=== PATIENT | male | born 1965 | race African-American/Black ===

== ENCOUNTER 2020-10-30 13:02 | Inpatient (IN) ==
[2020-10-30] MEDS ORDERED: DECADRON INJ PRESERVATIVE-FREE IVP ONE (14:40)
[2020-10-30] MEDS ORDERED: PROVENTIL NEB TX 0.083% 2.5MG/ 3ML NEB ONE (14:42)
--- NOTE | 2020-10-30 14:48 | DR.EXTPAIN ---
HPI Time seen Time Seen by Provider: 10/30/20 14:12 PCP Primary Care Physician: HENRIQUE HPI Comment HPI Comment: Patient presents with 4-5 days of flu-like illness. Notes that he has not had any known sick contacts. Complaint/Symptoms Chief Complaint:: ACHING ALL OVER,FEEL LIKE MUSCLE SPAMS,WEAKNESS,NO APPETTIE Self Treatment fo Chief Complaint: COLD MEDICINE COVID-19 Coronavirus risk:travel/contact w/high risk person: Yes Has patient experienced Coronavirus symptoms: Yes Coronavirus symptoms experienced: Fever and Coughing Source History Provided: Patient Mode of arrival Mode of Arrival: Ambulatory Timing Onset of Chief Complaint: 10/23/20 PMH PMH Past Medical History: Yes Past Medical History: Diabetes, GERD and Hypertension Past Surgical History: No Surgical History: Other Family History History of Family Medical Conditions: Yes Family Medical History: Coronary Artery Disease and Hypertension Social History Does any household member use tobacco: Yes Alcohol Use: None Do you use any recreational Drugs:: No Lives With: Significant Other Lives Where: Home Travel Risk Coronavirus risk:travel/contact w/high risk person: Yes Has patient experienced Coronavirus symptoms: Yes Coronavirus symptoms experienced: Fever and Coughing Infectious screening In the last 2 months have you had wt loss of >10#?: NO Have you had fever, night sweats or hemotysis?: No Have you traveled outside the country in the last 6 months?: No Isolation: Droplet ROS Review of Systems Constitutional: See HPI, Chills, Fever, Malaise, Weakness and Fatigue Respiratoy: Dry Cough All Other Systems: Reviewed and Negative PE Vital Signs Vitals: Temperature 99.7 F Pulse Rate [Left] 90 Pulse Rate 102 Respiratory Rate 20 Blood Pressure [Left Arm] 130/73 Blood Pressure 126/62 O2 Sat by Pulse Oximetry 95 General Limitations: No Limitations Head Head Exam: Normal Inspection, Atraumatic and Normocephalic Eyes Eye exam: Normal Appearance and EOMI ENT ENT Exam: Normal Exam Neck Neck Exam: Normal Inspection and Trachea Midline Chest Chest Inspection: Normal Inspection and Symmetric Chest Wall Rise Respiratory Respiratory Exam: Bilateral: Rhonchi Cardiovascular Cardiovascular Exam: Regular Rate, Normal Rhythm and Normal Heart Sounds Abdominal Exam Abdominal Exam: Normal Inspection, Normal Bowel Sounds and Soft Extremities Extremities Exam: Normal Inspection COURSE Reevaluation 1st: Unchanged ROR Labs Reviewed Laboratory Results Reviewed?: Yes Result Diagrams: 10/30/20 15:05 10/30/20 15:05 Laboratory: WBC 5.7 X10^3/uL (3.6-10.0) 10/30/20 15:05 RBC 4.90 X10^6/uL (4.7-6.0) 10/30/20 15:05 Hgb 14.0 g/dL (13.5-18.0) 10/30/20 15:05 Hct 41.2 % (42.0-54.0) L 10/30/20 15:05 MCV 84.1 fL (80.0-100.0) 10/30/20 15:05 MCH 28.5 pg (27.0-34.0) 10/30/20 15:05 MCHC 33.9 g/dL (33.0-35.0) 10/30/20 15:05 RDW 13.0 % (11.6-16.5) 10/30/20 15:05 Plt Count 201 X10^3/uL (150.0-450.0) 10/30/20 15:05 MPV 7.7 fL (7.4-11.0) 10/30/20 15:05 Neut % (Auto) 67.4 % (42.0-75.0) 10/30/20 15:05 Lymph % (Auto) 21.2 % (21.0-51.0) 10/30/20 15:05 [place] % (Auto) 11.0 % (0.0-13.0) 10/30/20 15:05 Eos % (Auto) 0.0 % (0.9-2.9) L 10/30/20 15:05 Baso % (Auto) 0.4 % (0.2-1.0) 10/30/20 15:05 Neut # (Auto) 3.9 x10^3/uL (2.2-4.8) 10/30/20 15:05 Lymph # (Auto) 1.2 X10^3/uL (1.3-2.9) L 10/30/20 15:05 [place] # (Auto) 0.6 x10^3/uL (0.3-0.8) 10/30/20 15:05 Eos # (Auto) 0.0 x10^3/uL (0.0-0.2) 10/30/20 15:05 Baso # (Auto) 0.0 X10^3/uL (0.0-0.1) 10/30/20 15:05 Absolute Nucleated RBC 0.1 /100WBC 10/30/20 15:05 Sodium 132 mmol/L (136-145) L 10/30/20 15:05 Corrected Sodium 133 mmol/L (136-145) L 10/30/20 15:05 Potassium 4.1 mmol/L (3.5-5.1) 10/30/20 15:05 Chloride 97 mmol/L (98-107) L 10/30/20 15:05 Carbon Dioxide 20.5 mmol/L (21-32) L 10/30/20 15:05 BUN 65 mg/dL (7-18) H 10/30/20 15:05 Creatinine 2.37 mg/dL (0.70-1.30) H 10/30/20 15:05 Est GFR (MDRD) Af Amer 37 (>60) L 10/30/20 15:05 Est GFR (MDRD) Non-Af 30 (>60) L 10/30/20 15:05 Glucose 160 mg/dL (65-99) H 10/30/20 15:05 Calcium 9.2 mg/dL (8.5-10.1) 10/30/20 15:05 Corrected Calcium TNP 10/30/20 15:05 Total Bilirubin 0.60 mg/dL (0.2-1.0) 10/30/20 15:05 AST 128 Units/L (15-37) H 10/30/20 15:05 ALT 70 Units/L (12-78) 10/30/20 15:05 Alkaline Phosphatase 63 Units/L (46-116) 10/30/20 15:05 Total Protein 7.9 g/dL (6.4-8.2) 10/30/20 15:05 Albumin 3.5 g/dL (3.4-5.0) 10/30/20 15:05 Globulin 4.4 g/dL (2.5-4.5) 10/30/20 15:05 Albumin/Globulin Ratio 0.8 Ratio (1.1-2.1) L 10/30/20 15:05 Influenza Type A (PCR) Negative (NEGATIVE) 10/30/20 15:13 Influenza Type B (PCR) Negative (NEGATIVE) 10/30/20 15:13 SARS CoV-2 RNA Rapid MERYL Positive (NEGATIVE) A 10/30/20 15:13 XRAY X-ray Results: bilateral infiltrates on CXR Opioid Opioid Risk Tool Age (Maxi box if 16-45): No History of Preadolescent Sexual Abuse: No Total: 0 Total Score Risk Category: Low Risk Copyright: Hesham LEIVA predicting aberrant behaviors Diagnosis Discharge Problem: Pneumonia due to 2019 novel coronavirus Acute renal failure Qualifiers: Acute renal failure type: unspecified Qualified Code(s): N17.9 - Acute kidney failure, unspecified
--- NOTE | 2020-10-30 15:21 | RAD ---
HISTORYCOUGH, FLU LIKE SXSTUDYCHEST, 1 VIEWCOMPARISONNoneFINDINGSThe trachea is midline. The cardiac silhouette is unremarkable. Patchy bibasilar airspace opacities. The bony thorax is unremarkable.IMPRESSIONPatchy bibasilar airspace opacities concerning for pneumonia.Electronically signed by: JESS CRUZ (Oct 30, 2020 15:20:00)
[2020-10-30 15:25] LABS: BASOPHILS % (AUTO) 0.4 % (0.2-1.0); HEMATOCRIT 41.2 % (42.0-54.0); LYMPHOCYTES # (AUTO) 1.2 X10^3/uL (1.3-2.9); LYMPHOCYTES % (AUTO) 21.2 % (21.0-51.0); MEAN CORPUSCULAR HEMOGLOBIN 28.5 pg (27.0-34.0); MEAN CORPUSCULAR HGB CONC 33.9 g/dL (33.0-35.0); MEAN CORPUSCULAR VOLUME 84.1 fL (80.0-100.0); MEAN PLATELET VOLUME 7.7 fL (7.4-11.0); MONOCYTES # (AUTO) 0.6 x10^3/uL (0.3-0.8); NEUTROPHILS # (AUTO) 3.9 x10^3/uL (2.2-4.8); NEUTROPHILS % (AUTO) 67.4 % (42.0-75.0); PLATELET COUNT 201 X10^3/uL (150.0-450.0); WHITE BLOOD COUNT 5.7 X10^3/uL (3.6-10.0)
[2020-10-30] MEDS ORDERED: DECADRON INJ ONE (15:34)
[2020-10-30] MEDS ORDERED: PROVENTIL NEB TX 0.083% 2.5MG/ 3ML ONE (16:13)
[2020-10-30 16:24] LABS: ALANINE AMINOTRANSFERASE 70 Units/L (12-78); ALBUMIN 3.5 g/dL (3.4-5.0); ALKALINE PHOSPHATASE 63 Units/L (46-116); ASPARTATE AMINO TRANSFERASE 128 Units/L (15-37); BLOOD UREA NITROGEN 65 mg/dL (7-18); CALCIUM 9.2 mg/dL (8.5-10.1); CARBON DIOXIDE 20.5 mmol/L (21-32); CHLORIDE 97 mmol/L (98-107); COR NA(FOR HYPERGLY) 133 mmol/L (136-145); CREATININE 2.37 mg/dL (0.70-1.30); SODIUM 132 mmol/L (136-145); TOTAL PROTEIN 7.9 g/dL (6.4-8.2); eGFR NON BLACK RACES 30 (>60)
[2020-10-30] MEDS ORDERED: NS 1000 ML 1,000 ML IV ONE (16:44)
[2020-10-30] MEDS ORDERED: NS 1000 ML 1,000 ML ONE (16:59)
[2020-10-30] MEDS ORDERED: VITAMIN A PO SCH (17:30)
[2020-10-30] MEDS ORDERED: NS 1000 ML 1,000 ML IV SCH (18:00)
[2020-10-30] MEDS: PROVENTIL NEB TX 0.083% 2.5MG/ 3ML NEB SCH (18:11)
[2020-10-30] MEDS: DECADRON TAB PO SCH (18:18)
[2020-10-30] MEDS: ZITHROMAX INJ 500 MG VIAL 500 MG in D5W 250 ML IV 250 ML IV SCH (18:47)
[2020-10-30] MEDS: ZINC SULFATE PO SCH ×2 (18:47→20:22)
[2020-10-30] MEDS: VITAMIN D (1.25MG) PO SCH (18:47)
[2020-10-30] MEDS: NS 1000 ML 1,000 ML IV SCH (19:07)
[2020-10-30] MEDS: LOVENOX INJ 30 MG SYR SC SCH (20:21)
[2020-10-30] MEDS: ASCORBIC ACID INJ MULTI-DOSE VIAL 1,500 MG in NS 100 ML IV 100 ML IV SCH (20:21)
[2020-10-31] MEDS: PROVENTIL NEB TX 0.083% 2.5MG/ 3ML NEB SCH ×4 (01:11→17:30)
[2020-10-31] MEDS: ASCORBIC ACID INJ MULTI-DOSE VIAL 1,500 MG in NS 100 ML IV 100 ML IV SCH ×4 (02:04→21:00)
[2020-10-31] MEDS: NS 1000 ML 1,000 ML IV SCH ×4 (02:04→21:00)
[2020-10-31] MEDS: HumuLIN R SC PRN ×3 (05:42→21:05)
[2020-10-31 05:45] LABS: ALBUMIN 2.9 g/dL (3.4-5.0); CALCIUM 8.5 mg/dL (8.5-10.1); CARBON DIOXIDE 20.9 mmol/L (21-32); COR CA(FOR HYPOALB) 9.4 mg/dL (8.5-10.1); CREATININE 1.84 mg/dL (0.70-1.30)
[2020-10-31 05:59] LABS: BASOPHILS % (AUTO) 0.2 % (0.2-1.0); HEMATOCRIT 36.7 % (42.0-54.0); HEMOGLOBIN 12.4 g/dL (13.5-18.0); LYMPHOCYTES # (AUTO) 0.7 X10^3/uL (1.3-2.9); LYMPHOCYTES % (AUTO) 14.9 % (21.0-51.0); MEAN CORPUSCULAR HEMOGLOBIN 28.3 pg (27.0-34.0); MEAN CORPUSCULAR HGB CONC 33.7 g/dL (33.0-35.0); MEAN CORPUSCULAR VOLUME 84.1 fL (80.0-100.0); MEAN PLATELET VOLUME 7.7 fL (7.4-11.0); MONOCYTES # (AUTO) 0.4 x10^3/uL (0.3-0.8); MONOCYTES % (AUTO) 7.9 % (0.0-13.0); NEUTROPHILS # (AUTO) 3.6 x10^3/uL (2.2-4.8); PLATELET COUNT 235 X10^3/uL (150.0-450.0); RED BLOOD COUNT 4.37 X10^6/uL (4.7-6.0); WHITE BLOOD COUNT 4.7 X10^3/uL (3.6-10.0)
[2020-10-31] MEDS: LOVENOX INJ 30 MG SYR SC SCH ×2 (09:53→21:00)
[2020-10-31] MEDS: TRICOR TAB 160 MG PO SCH (09:54)
[2020-10-31] MEDS: ZITHROMAX INJ 500 MG VIAL 500 MG in D5W 250 ML IV 250 ML IV SCH (09:55)
[2020-10-31] MEDS: ZINC SULFATE PO SCH ×2 (09:55→21:00)
[2020-10-31] MEDS: VITAMIN D (1.25MG) PO SCH (09:57)
[2020-10-31] MEDS: DECADRON TAB PO SCH (09:57)
--- NOTE | 2020-10-31 11:27 | DR.H&P ---
H&P - History & Physical for Day of: H&P Date: 10/30/20 - Chief Complaint Chief Complaint: FLU LIKE SYMPTOMS, WEAKNESS - History of Present Illness History of Present Illness: Patient presents with 4-5 days of flu-like illness. Notes that he has not had any known sick contacts. Pt has PMH of DM, HTN. Pt confirmed covid 19 + in ER. - Past Medical History Past Medical History: Hypertension, Diabetes, GERD - Past Surgical History Surgical History: Other - Family History Family Medical History: Coronary Artery Disease, Hypertension - Social History Does any household member use tobacco: Yes Alcohol Use: None - Medications Home Medications: No Known Drug Allergies Allergy (Verified 10/30/20 14:56) - Review of Systems Constitutional: Fever, Weakness, Malaise Eyes: No Symptoms Reported ENT: No Symptoms Reported Respiratory: No Symptoms Reported Cardiovascular: No Symptoms Reported Gastrointestinal: Nausea Genitourinary: No Symptoms Reported Musculoskeletal: Shoulder Pain, Back Pain, Leg Pain Skin: No Symptoms Reported Neurological: Weakness - Physical Exam Vital Signs: Temperature 97.7 F Pulse Rate [Left] 70 Pulse Rate 71 Respiratory Rate 18 Blood Pressure [Left Arm] 122/80 Blood Pressure 100/63 O2 Sat by Pulse Oximetry 93 Oriented: Normal Eyes: Normal Ear: Normal Nose: Normal Throat: Normal Respiratory: RLL Diminished, LLL Diminished : Normal Auscultation: Bowel Sounds: Normal Palpation: Normal Tenderness: Normal Skin: Decreased Turgur Musculoskeletal: Normal Psychiatric: Anxiety Affect: Anxious Speech Pattern: Clear, Appropriate - Assessment/Plan (1) Pneumonia due to 2019 novel coronavirus Status: Acute Plan: ADMIT, IV HYDRATION. RESP CONSULT, IV ATBX, SUPPLEMENTAL O2 PRN. BP AND BS CONTROL, AM LABS. AM CXR, ABG. VERIFY AND RESUME HOME MEDICATION (2) Diabetes mellitus type 1 Status: Acute (3) Acute renal failure Qualifiers: Acute renal failure type: unspecified Qualified Code(s): N17.9 - Acute kidney failure, unspecified Status: Acute - Allergies Allergies/Adverse Reactions: Allergies Allergy/AdvReac Type Severity Reaction Status Date / Time No Known Drug Allergies Allergy Verified 10/30/20 14:56
--- NOTE | 2020-10-31 11:33 | RAD ---
HISTORYCovid pneumonia, renal failureSTUDYPortable AP [id number]/18/2020FINDINGSHeart size is stable. There is interval increase in infiltrate in the medial right lung base. Nonspecific interstitial prominence noted in the left lung. No adenopathy or pleural fluid or pneumothorax.IMPRESSIONIncreasing infiltrates especially in the medial right lower lung, consistent with pneumonia.Electronically signed by: IGNACIO CASTLE (Oct 31, 2020 11:31:49)
[2020-10-31 11:38] LABS: ABG BASE EXCESS -2.8 mmol/L (-2.0-2.0); ABG HCO3 20.4 mmol/L (22-26)
[2020-10-31] MEDS ORDERED: REMDESIVIR 200 MG in NS 250 ML IV 250 ML IV SCH (12:00)
[2020-10-31 12:30] LABS: ALBUMIN 2.9 g/dL (3.4-5.0); CALCIUM 9.1 mg/dL (8.5-10.1); CARBON DIOXIDE 21.7 mmol/L (21-32); CREATININE 1.74 mg/dL (0.70-1.30); TOTAL PROTEIN 7.1 g/dL (6.4-8.2)
[2020-10-31] MEDS: PROTONIX INJ 40 MG VIAL IVP SCH ×2 (15:21→21:00)
[2020-10-31] MEDS: SOLU-Medrol 125 MG VIAL IVP SCH ×2 (15:21)
[2020-10-31 16:13] LABS: BILIRUBIN,URINE NEGATIVE (NEGATIVE); BLOOD/HEMOGLOBIN,URINE 1+ (NEGATIVE); GLUCOSE, URINE 4+ (NEGATIVE); KETONES,URINE NEGATIVE (NEGATIVE); LEUKOCYTE ESTERASE ,URINE NEGATIVE (NEGATIVE); NITRITES,URINE NEGATIVE (NEGATIVE); PH,URINE 6.5 (5.0 - 8.0); PROTEIN,URINE NEGATIVE (NEGATIVE); UROBILINOGEN,URINE NORMAL (NORMAL)
[2020-10-31 16:20] LABS: APPEARANCE,URINE CLEAR (CLEAR); BACTERIA,URINE NEGATIVE /HPF (NEGATIVE); COLOR,URINE YELLOW (YELLOW); RBC,URINE 0-2 /HPF (0-3); SQUAMOUS EPITHELIAL CELL,UR RARE /HPF (NEGATIVE)
[2020-11-01] MEDS: PROVENTIL NEB TX 0.083% 2.5MG/ 3ML NEB SCH ×4 (00:56→18:03)
[2020-11-01] MEDS ORDERED: CATAPRES TAB 0.1 MG PO PRN (01:10)
[2020-11-01] MEDS: ASCORBIC ACID INJ MULTI-DOSE VIAL 1,500 MG in NS 100 ML IV 100 ML IV SCH ×4 (02:55→21:10)
[2020-11-01] MEDS: NS 1000 ML 1,000 ML IV SCH ×3 (06:22→18:36)
[2020-11-01] MEDS: HumuLIN R SC PRN ×4 (06:23→23:20)
[2020-11-01 06:40] LABS: BASOPHILS % (AUTO) 0.1 % (0.2-1.0); HEMOGLOBIN 12.9 g/dL (13.5-18.0); LYMPHOCYTES # (AUTO) 0.6 X10^3/uL (1.3-2.9); LYMPHOCYTES % (AUTO) 8.1 % (21.0-51.0); MEAN CORPUSCULAR HEMOGLOBIN 28.6 pg (27.0-34.0); MEAN CORPUSCULAR HGB CONC 33.9 g/dL (33.0-35.0); MEAN CORPUSCULAR VOLUME 84.4 fL (80.0-100.0); MEAN PLATELET VOLUME 7.9 fL (7.4-11.0); MONOCYTES # (AUTO) 0.3 x10^3/uL (0.3-0.8); MONOCYTES % (AUTO) 3.3 % (0.0-13.0); NEUTROPHILS # (AUTO) 6.9 x10^3/uL (2.2-4.8); NEUTROPHILS % (AUTO) 88.5 % (42.0-75.0); PLATELET COUNT 307 X10^3/uL (150.0-450.0); RED CELL DISTRIBUTION WIDTH 13.2 % (11.6-16.5); WHITE BLOOD COUNT 7.8 X10^3/uL (3.6-10.0)
[2020-11-01 06:54] LABS: ALBUMIN 2.8 g/dL (3.4-5.0); CALCIUM 8.8 mg/dL (8.5-10.1); CARBON DIOXIDE 21.2 mmol/L (21-32); COR CA(FOR HYPOALB) 9.8 mg/dL (8.5-10.1); CREATININE 1.75 mg/dL (0.70-1.30); TOTAL PROTEIN 7.1 g/dL (6.4-8.2)
[2020-11-01 08:57] VITALS: BMI 33.1
[2020-11-01] MEDS ORDERED: VITAMIN A PO SCH (09:00)
[2020-11-01] MEDS: LOVENOX INJ 30 MG SYR SC SCH ×2 (09:16→21:10)
[2020-11-01] MEDS: REMDESIVIR 100 MG in NS 250 ML IV 250 ML IV SCH (09:17)
[2020-11-01] MEDS: TRICOR TAB 160 MG PO SCH (09:17)
[2020-11-01] MEDS: ZINC SULFATE PO SCH ×2 (09:17→21:10)
[2020-11-01] MEDS: VITAMIN D3 125 mcg (5,000 UNITS) PO SCH (09:17)
[2020-11-01] MEDS: PROTONIX INJ 40 MG VIAL IVP SCH ×2 (09:18→21:10)
[2020-11-01] MEDS: ZITHROMAX INJ 500 MG VIAL 500 MG in D5W 250 ML IV 250 ML IV SCH (09:18)
[2020-11-01] MEDS: COLACE CAP 100 MG PO PRN ×2 (09:18→21:10)
[2020-11-01] MEDS: MILK OF MAGNESIA PO PRN ×2 (09:18→21:10)
[2020-11-01] MEDS ORDERED: NICOTINE PATCH TD SCH (12:00)
--- NOTE | 2020-11-01 12:14 | RAD ---
HISTORYCOVID PNEUMONIA, ACUTE RENAL FAILURESTUDYCHEST, 1 [id number]/19/2020FINDINGSInterval worsening of patchy parenchymal opacities bilaterally, most confluent in the medial right lung base. No appreciable pleural fluid. Heart size probably within normal limits. No significant change in appearance of the bony structures. No tracheal deviation.IMPRESSIONInterval worsening of patchy parenchymal opacities most confluent medially in the right base.Electronically signed by: Zacarias Tuttle (Nov 01, 2020 12:12:54)
[2020-11-01 12:34] LABS: ABG BASE EXCESS -2.8 mmol/L (-2.0-2.0); ABG HCO3 20.6 mmol/L (22-26)
[2020-11-01] MEDS: ZOSYN VIAL 3.375 GRAMS 3.375 G in NS 100 ML IV + SPIKE MINIBAG* 100 ML IV SCH ×3 (13:23→18:53)
[2020-11-01] MEDS: ROBITUSSIN DM PO SCH ×3 (16:59→21:10)
[2020-11-02] MEDS: PROVENTIL NEB TX 0.083% 2.5MG/ 3ML NEB SCH ×4 (00:29→18:20)
[2020-11-02] MEDS: NS 1000 ML 1,000 ML IV SCH ×3 (02:41→18:37)
[2020-11-02] MEDS: ASCORBIC ACID INJ MULTI-DOSE VIAL 1,500 MG in NS 100 ML IV 100 ML IV SCH ×4 (02:41→21:26)
[2020-11-02] MEDS: ZOSYN VIAL 3.375 GRAMS 3.375 G in NS 100 ML IV + SPIKE MINIBAG* 100 ML IV SCH ×4 (03:12→22:37)
[2020-11-02 05:57] LABS: ALBUMIN 2.6 g/dL (3.4-5.0); CALCIUM 8.5 mg/dL (8.5-10.1); CARBON DIOXIDE 22.8 mmol/L (21-32); COR CA(FOR HYPOALB) 9.6 mg/dL (8.5-10.1); CREATININE 1.57 mg/dL (0.70-1.30); TOTAL PROTEIN 6.4 g/dL (6.4-8.2)
[2020-11-02 06:02] LABS: ABG ALLEN TEST POS; ABG BASE EXCESS 0.9 mmol/L (-2.0-2.0); ABG HCO3 22.6 mmol/L (22-26)
[2020-11-02 06:09] LABS: BASOPHILS % (AUTO) 0.2 % (0.2-1.0); HEMATOCRIT 36.5 % (42.0-54.0); HEMOGLOBIN 12.3 g/dL (13.5-18.0); LYMPHOCYTES % (AUTO) 11.5 % (21.0-51.0); MEAN CORPUSCULAR HEMOGLOBIN 28.3 pg (27.0-34.0); MEAN CORPUSCULAR HGB CONC 33.6 g/dL (33.0-35.0); MEAN CORPUSCULAR VOLUME 84.3 fL (80.0-100.0); MONOCYTES # (AUTO) 0.6 x10^3/uL (0.3-0.8); MONOCYTES % (AUTO) 6.7 % (0.0-13.0); NEUTROPHILS # (AUTO) 7.2 x10^3/uL (2.2-4.8); NEUTROPHILS % (AUTO) 81.6 % (42.0-75.0); PLATELET COUNT 362 X10^3/uL (150.0-450.0); RED BLOOD COUNT 4.33 X10^6/uL (4.7-6.0); WHITE BLOOD COUNT 8.8 X10^3/uL (3.6-10.0)
[2020-11-02] MEDS: HumuLIN R SC PRN ×4 (06:41→21:28)
[2020-11-02] MEDS ORDERED: LASIX IVP SCH (09:00)
--- NOTE | 2020-11-02 10:43 | RAD ---
HISTORYPNEUMONIASTUDYCHEST, 1 [id number]/20/2020FINDINGSStable cardiomediastinal silhouette. There are progressive multifocal bilateral pulmonary opacities. No sizable effusion or visible pneumothorax.IMPRESSIONWorsening bilateral opacities.Electronically signed by: Delfino Yadav (Nov 02, 2020 10:42:21)
[2020-11-02] MEDS: PROTONIX INJ 40 MG VIAL IVP SCH ×2 (10:46→21:27)
[2020-11-02] MEDS: LOVENOX INJ 30 MG SYR SC SCH ×2 (10:46→21:27)
[2020-11-02] MEDS: ZINC SULFATE PO SCH ×2 (10:47→21:28)
[2020-11-02] MEDS: TRICOR TAB 160 MG PO SCH (10:47)
[2020-11-02] MEDS: VITAMIN D3 125 mcg (5,000 UNITS) PO SCH (10:47)
[2020-11-02] MEDS: ROBITUSSIN DM PO SCH ×4 (10:47→21:27)
[2020-11-02] MEDS: ZITHROMAX INJ 500 MG VIAL 500 MG in D5W 250 ML IV 250 ML IV SCH (11:00)
[2020-11-02] MEDS: REMDESIVIR 100 MG in NS 250 ML IV 250 ML IV SCH (14:53)
[2020-11-03] MEDS: PROVENTIL NEB TX 0.083% 2.5MG/ 3ML NEB SCH ×4 (00:25→17:55)
[2020-11-03] MEDS: ASCORBIC ACID INJ MULTI-DOSE VIAL 1,500 MG in NS 100 ML IV 100 ML IV SCH ×4 (02:56→21:45)
[2020-11-03 04:43] LABS: ABG ALLEN TEST POS; ABG BASE EXCESS 4.8 mmol/L (-2.0-2.0); ABG HCO3 28.1 mmol/L (22-26)
[2020-11-03] MEDS: NS 1000 ML 1,000 ML IV SCH ×3 (05:03→21:45)
[2020-11-03] MEDS: ZOSYN VIAL 3.375 GRAMS 3.375 G in NS 100 ML IV + SPIKE MINIBAG* 100 ML IV SCH ×3 (05:03→21:49)
[2020-11-03] MEDS: HumuLIN R SC PRN ×4 (05:39→21:47)
[2020-11-03 06:13] LABS: ALANINE AMINOTRANSFERASE 61 Units/L (12-78); ALBUMIN 2.6 g/dL (3.4-5.0); ALKALINE PHOSPHATASE 57 Units/L (46-116); ASPARTATE AMINO TRANSFERASE 29 Units/L (15-37); BLOOD UREA NITROGEN 25 mg/dL (7-18); CALCIUM 8.7 mg/dL (8.5-10.1); CARBON DIOXIDE 25.8 mmol/L (21-32); CHLORIDE 101 mmol/L (98-107); COR CA(FOR HYPOALB) 9.8 mg/dL (8.5-10.1); COR NA(FOR HYPERGLY) 140 mmol/L (136-145); CREATININE 1.37 mg/dL (0.70-1.30); SODIUM 137 mmol/L (136-145); TOTAL PROTEIN 6.5 g/dL (6.4-8.2); eGFR NON BLACK RACES 57 (>60)
[2020-11-03 06:14] LABS: BASOPHILS % (AUTO) 0.2 % (0.2-1.0); HEMATOCRIT 36.7 % (42.0-54.0); HEMOGLOBIN 12.3 g/dL (13.5-18.0); LYMPHOCYTES # (AUTO) 1.4 X10^3/uL (1.3-2.9); LYMPHOCYTES % (AUTO) 21.8 % (21.0-51.0); MEAN CORPUSCULAR HEMOGLOBIN 28.3 pg (27.0-34.0); MEAN CORPUSCULAR HGB CONC 33.5 g/dL (33.0-35.0); MEAN CORPUSCULAR VOLUME 84.4 fL (80.0-100.0); MEAN PLATELET VOLUME 7.9 fL (7.4-11.0); MONOCYTES % (AUTO) 14.8 % (0.0-13.0); NEUTROPHILS # (AUTO) 4.1 x10^3/uL (2.2-4.8); NEUTROPHILS % (AUTO) 63.2 % (42.0-75.0); PLATELET COUNT 380 X10^3/uL (150.0-450.0); RED BLOOD COUNT 4.35 X10^6/uL (4.7-6.0); WHITE BLOOD COUNT 6.5 X10^3/uL (3.6-10.0)
--- NOTE | 2020-11-03 07:12 | RAD ---
HISTORYFollow-up COVID-19STUDYChest AP [id number]/21/2020FINDINGSThe heart remains enlarged. No congestive heart failure is noted. Multifocal bilateral ground-glass and alveolar infiltrates are unchanged. Mild hypo inflation is unchanged. No pleural effusions are identified. Bony thorax is unremarkable.IMPRESSIONNo change cardiomegaly without congestive heart failureNo change bilateral patchy alveolar and ground-glass infiltratesElectronically signed by: JESS CRUZ (Nov 03, 2020 07:10:48)
[2020-11-03] MEDS ORDERED: D5W 250 ML IV 250 ML IV ONE (08:05)
[2020-11-03] MEDS: PROTONIX INJ 40 MG VIAL IVP SCH ×2 (08:24→21:46)
[2020-11-03] MEDS: TRICOR TAB 160 MG PO SCH (08:25)
[2020-11-03] MEDS: ROBITUSSIN DM PO SCH ×4 (08:25→21:46)
[2020-11-03] MEDS: ZINC SULFATE PO SCH ×2 (08:26→21:46)
[2020-11-03] MEDS: VITAMIN D3 125 mcg (5,000 UNITS) PO SCH (08:26)
[2020-11-03] MEDS: REMDESIVIR 100 MG in NS 250 ML IV 250 ML IV SCH (09:56)
[2020-11-03] MEDS: LOVENOX INJ 30 MG SYR SC SCH ×2 (12:15→21:45)
[2020-11-03] MEDS: ZITHROMAX INJ 500 MG VIAL 500 MG in D5W 250 ML IV 250 ML IV SCH (12:33)
[2020-11-04] MEDS: PROVENTIL NEB TX 0.083% 2.5MG/ 3ML NEB SCH ×3 (00:10→11:20)
[2020-11-04] MEDS: NS 1000 ML 1,000 ML IV SCH (02:28)
[2020-11-04] MEDS: ASCORBIC ACID INJ MULTI-DOSE VIAL 1,500 MG in NS 100 ML IV 100 ML IV SCH ×2 (03:30→08:32)
[2020-11-04 04:46] LABS: ABG ALLEN TEST POS; ABG BASE EXCESS 3.5 mmol/L (-2.0-2.0); ABG HCO3 26.5 mmol/L (22-26)
--- NOTE | 2020-11-04 05:16 | RAD ---
HISTORYPNEUMONIASTUDYCHEST, 1 [id number]/22/2020FINDINGSThe trachea is midline. The cardiac silhouette is stable. Bilateral patchy airspace opacity, unchanged compared to prior exam. No pleural effusion or pneumothorax.. The bony thorax is unremarkable.IMPRESSIONNo significant interval change.Electronically signed by: Jennifer Victoria (Nov 04, 2020 05:15:32)
[2020-11-04] MEDS: ZOSYN VIAL 3.375 GRAMS 3.375 G in NS 100 ML IV + SPIKE MINIBAG* 100 ML IV SCH (05:40)
[2020-11-04 05:46] LABS: BASOPHILS % (AUTO) 0.1 % (0.2-1.0); EOSINOPHILS % (AUTO) 0.9 % (0.9-2.9); HEMATOCRIT 36.1 % (42.0-54.0); HEMOGLOBIN 12.2 g/dL (13.5-18.0); LYMPHOCYTES # (AUTO) 1.5 X10^3/uL (1.3-2.9); LYMPHOCYTES % (AUTO) 28.9 % (21.0-51.0); MEAN CORPUSCULAR HEMOGLOBIN 28.6 pg (27.0-34.0); MEAN CORPUSCULAR HGB CONC 33.9 g/dL (33.0-35.0); MEAN CORPUSCULAR VOLUME 84.4 fL (80.0-100.0); MEAN PLATELET VOLUME 7.5 fL (7.4-11.0); MONOCYTES # (AUTO) 0.7 x10^3/uL (0.3-0.8); MONOCYTES % (AUTO) 12.7 % (0.0-13.0); NEUTROPHILS % (AUTO) 57.4 % (42.0-75.0); PLATELET COUNT 409 X10^3/uL (150.0-450.0); RED BLOOD COUNT 4.28 X10^6/uL (4.7-6.0); RED CELL DISTRIBUTION WIDTH 13.1 % (11.6-16.5); WHITE BLOOD COUNT 5.3 X10^3/uL (3.6-10.0)
[2020-11-04 06:06] LABS: ALANINE AMINOTRANSFERASE 48 Units/L (12-78); ALBUMIN 2.4 g/dL (3.4-5.0); ALKALINE PHOSPHATASE 50 Units/L (46-116); ASPARTATE AMINO TRANSFERASE 20 Units/L (15-37); BLOOD UREA NITROGEN 16 mg/dL (7-18); CALCIUM 8.7 mg/dL (8.5-10.1); CARBON DIOXIDE 25.5 mmol/L (21-32); CHLORIDE 102 mmol/L (98-107); COR NA(FOR HYPERGLY) 139 mmol/L (136-145); CREATININE 1.16 mg/dL (0.70-1.30); SODIUM 136 mmol/L (136-145); TOTAL PROTEIN 6.3 g/dL (6.4-8.2); eGFR NON BLACK RACES > 60 (>60)
[2020-11-04] MEDS: HumuLIN R SC PRN ×2 (06:51→12:03)
[2020-11-04] MEDS: ROBITUSSIN DM PO SCH (08:33)
[2020-11-04] MEDS: TRICOR TAB 160 MG PO SCH (08:33)
[2020-11-04] MEDS: PROTONIX INJ 40 MG VIAL IVP SCH (08:33)
[2020-11-04] MEDS: LOVENOX INJ 30 MG SYR SC SCH (08:33)
[2020-11-04] MEDS: ZINC SULFATE PO SCH (08:34)
[2020-11-04] MEDS: VITAMIN D3 125 mcg (5,000 UNITS) PO SCH (08:34)
[2020-11-04] MEDS ORDERED: LASIX IVP ONE (09:09)
[2020-11-04] MEDS ORDERED: K-DUR TAB 20 MEQ PO SCH (10:00)
[2020-11-04] MEDS: REMDESIVIR 100 MG in NS 250 ML IV 250 ML IV SCH (10:01)
[2020-11-04] MEDS: ZITHROMAX INJ 500 MG VIAL 500 MG in D5W 250 ML IV 250 ML IV SCH (11:08)
[2020-11-04 12:37] VITALS: BP 151/93
== END 2020-11-04 14:00 | disposition home or self-care (01) | DRG 177 ==
LOC: MED/SURG 13:14 → ER 13:14 → MED/SURG 18:20
PROVIDERS: ADMIT Internal Medicine; ATTEND Internal Medicine